=== PATIENT | female | born 1990 | race Caucasian/White ===

== ENCOUNTER 2018-07-24 14:48 | Inpatient (IN) | payer MEDICAID ==
[~2018-07-24 14:48] MED LIST: BUPIVACAINE 0.75%/DEXT (SPINAL) 2 ML INJ
[2018-07-24] MEDS ORDERED: MISOPROSTOL 200 MCG TAB PR (15:30)
[2018-07-24] MEDS ORDERED: OXYTOCIN 30 UNITS/LR 500 ML IV ×2 (15:30)
[2018-07-24] MEDS: CEFAZOLIN 2 GM/50 ML (PMX) 50 ML IV (15:30)
[2018-07-24] MEDS ORDERED: LIDOCAINE 1% (MPF) 30 ML INJ INJ (15:30)
[2018-07-24] MEDS ORDERED: CARBOPROST 250 MCG INJ IM (15:30)
[2018-07-24] MEDS ORDERED: METHYLERGONOVINE 0.2 MG INJ IM (15:30)
[2018-07-24 15:49] LABS: ADD MAN DIFF? NO
[2018-07-24 15:53] LABS: WHITE BLOOD COUNT 8.1 10^3/ul (4.8-10.8)
[2018-07-24 15:53] LABS: BASOPHILS % 0.2 % (0.0-2.0); EOSINOPHILS # 0.1 10^3/ul (0.0-0.5); EOSINOPHILS % 0.9 % (0.0-7.0); HEMOGLOBIN 13.5 g/dl (12.0-16.0); LYMPHOCYTES # 2.3 10^3/ul (0.8-2.9); LYMPHOCYTES % 28.5 % (15.0-51.0); MEAN CORPUSCULAR HGB CONC 33.8 g/dl (32.0-37.0); MEAN CORPUSCULAR VOLUME 88.9 fl (82.0-101.0); MEAN PLATELET VOLUME 11.1 fl (7.4-10.4); MONOCYTE # 0.6 10^3/ul (0.3-0.9); MONOCYTES % 7.3 % (0.0-11.0); NEUTROPHIL # 5.1 10^3/ul (1.6-7.5); NEUTROPHILS % 62.6 % (39.0-77.0); PLATELET COUNT 121 10^3/UL (140-415); RED CELL DISTRIBUTION WIDTH 12.7 % (11.5-14.5)
[2018-07-24 16:12] LABS: INR 0.93; PARTIAL THROMBOPLASTIN TIME 27.8 Sec (25.0-35.0); PROTIME 12.6 Sec (11.9-14.9)
[2018-07-24] MEDS: LACTATED RINGER'S 1,000 ML IV* ×2 (16:21→19:03)
[2018-07-24 16:40] LABS: HEPATITIS B SURFACE ANTIGEN NEGATIVE (NEGATIVE)
[2018-07-24] MEDS: ONDANSETRON 4 MG INJ IV (19:24)
[2018-07-24] MEDS: CITRIC ACID/SODIUM CITRATE 15 ML CUP PO (19:24)
[2018-07-24] MEDS ORDERED: PHENYLephrine (100 MCG/ML) 5ML SYG (19:38)
[2018-07-24] MEDS ORDERED: FENTAnyl 50 MCG/ML VIAL (19:38)
[2018-07-24] MEDS ORDERED: morphine SULFATE/PF (10 MG/10 ML) INJ (19:38)
[2018-07-24] MEDS ORDERED: OXYTOCIN 10 UNIT INJ (19:38)
[2018-07-24] MEDS ORDERED: METOCLOPRAMIDE 10 MG INJ (19:38)
[2018-07-24] MEDS ORDERED: EPHEDrine SULFATE 50 MG/5 ML SYG IV (20:30)
[2018-07-24] MEDS ORDERED: NALOXONE (0.4 MG/ML) INJ IV ×2 (20:30→21:00)
[2018-07-24] MEDS ORDERED: OXYCODONE/ACETAMINOPHEN (5/325) TAB PO ×2 (20:30)
[2018-07-24] MEDS ORDERED: IPRATROPIUM (NEB) 0.5 MG/2.5 ML AMP HHN (20:30)
[2018-07-24] MEDS ORDERED: KETOROLAC 30 MG INJ IV (20:30)
[2018-07-24] MEDS ORDERED: NALBUPHINE HCL (10 MG/1 ML) INJ IV ×2 (20:30→21:00)
[2018-07-24] MEDS ORDERED: DIPHENHYDRAMINE 50 MG INJ IV ×3 (20:30→21:00)
[2018-07-24] MEDS ORDERED: HYDROmorphONE 1 MG/5 ML IV SYRINGE IV ×3 (20:30)
[2018-07-24] MEDS ORDERED: FENTAnyl 50 MCG/ML VIAL IV ×3 (20:30)
[2018-07-24] MEDS ORDERED: LABETALOL HCL 20MG INJ IV (20:30)
[2018-07-24] MEDS ORDERED: morphine 2 MG INJ IV ×3 (20:30→21:00)
[2018-07-24] MEDS ORDERED: ALBUTEROL 0.083% (NEB) 2.5 MG/3 ML AMP HHN (20:30)
[2018-07-24] MEDS ORDERED: ONDANSETRON 4 MG INJ IV ×3 (20:30→21:00)
[2018-07-24] MEDS ORDERED: MIDAZOLAM 1 MG/ML 2 ML INJ IV (20:30)
[2018-07-24] MEDS ORDERED: MEPERIDINE 25 MG INJ IV (20:30)
[2018-07-24] MEDS ORDERED: hydrALAzine 20 MG INJ IV (20:30)
[2018-07-24] MEDS ORDERED: TRIMETHOBENZAMIDE 100 MG/ML VIAL IM ×3 (20:30→21:00)
[2018-07-24] MEDS: OXYTOCIN 30 UNITS/LR 500 ML IV ×2 (22:41→23:48)
[2018-07-24] MEDS: KETOROLAC 30 MG INJ IV (22:46)
[2018-07-24] MEDS: LACTATED RINGER'S 1,000 ML IV (23:48)
[2018-07-25] MEDS ORDERED: METHYLERGONOVINE 0.2 MG INJ IM
[2018-07-25] MEDS ORDERED: CARBOPROST 250 MCG INJ IM
[2018-07-25] MEDS ORDERED: OXYTOCIN 30 UNITS/LR 500 ML IV
[2018-07-25] MEDS ORDERED: MISOPROSTOL 200 MCG TAB PR
[2018-07-25] MEDS: LACTATED RINGER'S 1,000 ML IV ×3 (02:50→23:48)
[2018-07-25] MEDS: KETOROLAC 30 MG INJ IV ×3 (05:36→19:42)
[2018-07-25 07:16] LABS: ADD MAN DIFF? NO
[2018-07-25 07:23] LABS: BASOPHILS % 0.3 % (0.0-2.0); EOSINOPHILS % 0.3 % (0.0-7.0); HEMATOCRIT 36.5 % (37.0-47.0); HEMOGLOBIN 12.1 g/dl (12.0-16.0); LYMPHOCYTES # 1.8 10^3/ul (0.8-2.9); LYMPHOCYTES % 14.8 % (15.0-51.0); MEAN CORPUSCULAR HEMOGLOBIN 30.1 pg (29.0-33.0); MEAN CORPUSCULAR HGB CONC 33.2 g/dl (32.0-37.0); MEAN CORPUSCULAR VOLUME 90.8 fl (82.0-101.0); MEAN PLATELET VOLUME 11.5 fl (7.4-10.4); MONOCYTE # 0.9 10^3/ul (0.3-0.9); MONOCYTES % 7.4 % (0.0-11.0); NEUTROPHIL # 9.2 10^3/ul (1.6-7.5); NEUTROPHILS % 76.8 % (39.0-77.0); PLATELET COUNT 119 10^3/UL (140-415); RED BLOOD COUNT 4.02 10^6/ul (4.20-5.40); RED CELL DISTRIBUTION WIDTH 12.7 % (11.5-14.5)
[2018-07-25] MEDS: SENNA/DOCUSATE NA (8.6MG/50MG) TAB PO ×2 (09:00→22:05)
[2018-07-25] MEDS: LANOLIN 7 GM TUBE TOP (13:30)
[2018-07-25 15:44] LABS: RAPID PLASMA REAGIN NONREACTIVE (NR)
[2018-07-25] MEDS: IBUPROFEN 800 MG TAB PO (22:00)
[2018-07-25] MEDS: OXYCODONE/ACETAMINOPHEN (5/325) TAB PO (22:42)
[2018-07-26] MEDS: OXYCODONE/ACETAMINOPHEN (5/325) TAB PO ×3 (02:48→19:10)
[2018-07-26] MEDS: IBUPROFEN 800 MG TAB PO ×3 (06:12→22:06)
[2018-07-26] MEDS: SENNA/DOCUSATE NA (8.6MG/50MG) TAB PO ×3 (09:00→21:05)
[2018-07-26] MEDS: NA PHOSPHATE/BIPHOS 133 ML ENEMA PR (15:55)
[2018-07-27] MEDS: OXYCODONE/ACETAMINOPHEN (5/325) TAB PO ×3 (02:36→15:35)
[2018-07-27] MEDS: IBUPROFEN 800 MG TAB PO ×3 (05:57→21:29)
[2018-07-27] MEDS: SENNA/DOCUSATE NA (8.6MG/50MG) TAB PO ×2 (09:02→21:07)
[2018-07-27] MEDS: DIPHTH/TET/ACEL PERTUSS (ADULT) 0.5 ML VIAL IM* (10:56)
[2018-07-27 18:15] LABS: ADD MAN DIFF? NO
[2018-07-27 18:17] LABS: BASOPHILS % 0.3 % (0.0-2.0); EOSINOPHILS # 0.2 10^3/ul (0.0-0.5); EOSINOPHILS % 1.9 % (0.0-7.0); HEMATOCRIT 38.7 % (37.0-47.0); HEMOGLOBIN 12.8 g/dl (12.0-16.0); LYMPHOCYTES # 3.4 10^3/ul (0.8-2.9); LYMPHOCYTES % 29.6 % (15.0-51.0); MEAN CORPUSCULAR HEMOGLOBIN 29.8 pg (29.0-33.0); MEAN CORPUSCULAR HGB CONC 33.1 g/dl (32.0-37.0); MEAN CORPUSCULAR VOLUME 90.2 fl (82.0-101.0); MEAN PLATELET VOLUME 10.8 fl (7.4-10.4); MONOCYTE # 0.8 10^3/ul (0.3-0.9); MONOCYTES % 7.2 % (0.0-11.0); NEUTROPHIL # 6.9 10^3/ul (1.6-7.5); NEUTROPHILS % 60.6 % (39.0-77.0); PLATELET COUNT 160 10^3/UL (140-415); RED BLOOD COUNT 4.29 10^6/ul (4.20-5.40); RED CELL DISTRIBUTION WIDTH 12.6 % (11.5-14.5)
[2018-07-27 18:17] LABS: WHITE BLOOD COUNT 11.3 10^3/ul (4.8-10.8)
[2018-07-27 19:23] LABS: ADD UMIC YES; UR ASCORBIC ACID NEGATIVE (NEGATIVE); UR BILIRUBIN (Dip) NEGATIVE (NEGATIVE); UR BLOOD (Dip) 3+ mg/dL (NEGATIVE); UR CLARITY CLEAR (CLEAR); UR COLOR YELLOW (YELLOW); UR GLUCOSE (Dip) NEGATIVE (NEGATIVE); UR KETONES (Dip) NEGATIVE (NEGATIVE); UR LEUKOCYTE ESTERASE (Dip) NEGATIVE Leu/ul (NEGATIVE); UR MUCUS FEW /HPF (NONE SEEN); UR NITRITE (Dip) NEGATIVE (NEGATIVE); UR RBC 77 /HPF (0-5); UR SPECIFIC GRAVITY (Dip) 1.018 (1.003-1.030); UR SQUAMOUS EPITHELIAL CELL FEW /HPF (FEW); UR TOTAL PROTEIN (Dip) NEGATIVE (NEGATIVE); UR UROBILINOGEN (Dip) NEGATIVE (NEGATIVE); UR WBC 3 /HPF (0-5)
[2018-07-28] MEDS: OXYCODONE/ACETAMINOPHEN (5/325) TAB PO ×2 (01:22→08:14)
[2018-07-28] MEDS: IBUPROFEN 800 MG TAB PO ×2 (05:16→14:09)
[2018-07-28] MEDS: SENNA/DOCUSATE NA (8.6MG/50MG) TAB PO (09:24)
[2018-07-28] MEDS: MAGNESIUM HYDROXIDE 30ML CUP PO (14:22)
== END 2018-07-28 15:30 | disposition home or self-care (01) | DRG 766 ==
LOC: L-D 14:48 → PP1 23:28
PROVIDERS: Obstetrics & Gynecology
PROC: 10D00Z1 Extraction of Products of Conception, Low, Open Approach (ICD-10-PCS; principal; 2018-07-24 17:00)
PROC: 3E033VJ Introduction of Other Hormone into Peripheral Vein, Percutaneous Approach (ICD-10-PCS; 2018-07-24 17:00)
DX: O34.211 Maternal care for low transverse scar from previous cesarean delivery (principal); Z3A.39 39 weeks gestation of pregnancy; Z37.0 Single live birth
CPT/HCPCS: 81001; 85025; 85610; 85730; 86592; 86850; 86900; 86901; 87086; 87340; 90715; 99464

== ENCOUNTER 2018-08-04 19:58 | Emergency (ER) | payer MEDICAID | END 2018-08-04 21:56 | disposition home or self-care (01) | LOC: FTE 21:56 | DX: Z48.01 Encounter for change or removal of surgical wound dressing (principal) | CPT/HCPCS: 99281 ==